=== PATIENT | female | born 1990 | race Caucasian/White ===

== ENCOUNTER → 2017-10-06 | Outpatient (CLI) | payer BC | LOC: FIMAGING 15:09 | PROVIDERS: ATTEND Family Medicine | DX: Z12.31 Encounter for screening mammogram for malignant neoplasm of breast (principal); Z80.3 Family history of malignant neoplasm of breast ==

== ENCOUNTER → 2017-10-27 | Outpatient (CLI) | payer BC ==
[~2017-10-27] MED LIST: BUPIVACAINE 0.5% 30 ML SDV ONE; LIDOCAINE 1% 300 MG/30 ML SDV ONE; THROMBIN (BOVINE) 5,000 UNIT VIAL TP ONE
== END ==
LOC: FIMAGING 07:23
PROVIDERS: ATTEND Family Medicine
PROC: 0HBU3ZX Excision of Left Breast, Percutaneous Approach, Diagnostic (ICD-10-PCS; principal; 2017-10-27)
DX: D24.2 Benign neoplasm of left breast (principal); Z80.3 Family history of malignant neoplasm of breast